=== PATIENT | female | born 2000 | race African-American/Black ===

== ENCOUNTER 2018-12-13 09:18 | Emergency (ER) | payer OTHER ==
[~2018-12-13] VITALS: Ht 167.6 cm; Wt 108.9 kg
[~2018-12-13 09:18] MED LIST: AMOXICILLI250 MG/51 PO; BENADRYL25 MG PO; CEPHALEXIN 500500 M3 PO; IBUPROFEN 600600 M1 PO; KEFLEX500 MG PO; NOHOMEMEDICATIONS; PHENERGAN 25 MG25 M1 PO; PREDNISONE 20 M20 M1 PO; VENTOLIN HFA INH8 GM IH; ZOFRAN ODT4 MG PO
[2018-12-13] MEDS ORDERED: KEFLEX500 M1 PO (10:46)
[2018-12-13 11:01] VITALS: BP 139/80
== END 2018-12-13 11:02 | disposition home or self-care (01) ==
LOC: M.ERS 09:18
DX: R59.0 Localized enlarged lymph nodes (principal); B27.90 Infectious mononucleosis, unspecified without complication; J02.9 Acute pharyngitis, unspecified